=== PATIENT | male | born 1995 | race Two or more races ===

== ENCOUNTER 2022-04-19 23:42 | Inpatient (IN) | payer OTHER ==
[~2022-04-19] VITALS: Ht 190.5 cm; Wt 65.8 kg
--- NOTE | 2022-04-20 00:08 | NUR ---
Dr. Gutierrez at bedside. MSE in progress.
--- NOTE | 2022-04-20 00:48 | NUR ---
X-ray at bedside.
[2022-04-20] MEDS ORDERED: LIDOCAINE 1%-EPI 1:100,000 20 ML VIAL IJ ONE (01:00)
[2022-04-20] MEDS ORDERED: MORPHINE SULFATE 4 MG/1 ML DISP.SYRIN IV ONE (01:00)
[2022-04-20] MEDS ORDERED: MORPHINE SULFATE 4 MG/1 ML DISP.SYRIN ONE (01:12)
[2022-04-20 01:17] LABS: HEMATOCRIT 40.2 % (36.7-47.1); MEAN CORPUSCULAR HEMOGLOBIN 30.8 uug (23.8-33.4); MEAN CORPUSCULAR VOLUME 87.5 fL (73.0-96.2); PLATELET COUNT (AUTO) 221 K/uL (152-348)
[2022-04-20 01:27] LABS: CARBON DIOXIDE 26 mmol/L (21-32); CHLORIDE 102 mmol/L (98-107); CREATININE 0.7 mg/dL (0.6-1.3); GLUCOSE 104 mg/dL (74-106); POTASSIUM 3.4 mmol/L (3.5-5.1); UREA NITROGEN, BLOOD 15 mg/dL (7-18)
[2022-04-20] MEDS ORDERED: LIDOCAINE 2%-EPI 1:100,000 20 ML VIAL ONE (01:42)
--- NOTE | 2022-04-20 03:41 | NUR ---
Called [facility] to page Tereso Kessler NP.
[2022-04-20] MEDS ORDERED: HYDROCODONE/APAP 10-325 MG TABLET PO PRN (03:45)
[2022-04-20] MEDS ORDERED: HYDROCODONE/APAP 10-325 MG TABLET ONE (03:46)
--- NOTE | 2022-04-20 03:56 | NUR ---
Report given to ANN Wang.
--- NOTE | 2022-04-20 04:20 | NUR ---
Pt. admitted to TELE rm 311, under care of Dr. Kessler Belongs List completed Felipe aware of patient's arrival to unit.
[2022-04-20 04:43] VITALS: BP 132/81
[2022-04-20] MEDS ORDERED: HYDROCODONE/APAP 5-325MG TABLET PO PRN (05:45)
[2022-04-20] MEDS ORDERED: ZOLPIDEM 5 MG TABLET PO PRN (05:45)
[2022-04-20] MEDS ORDERED: MORPHINE SULFATE 2 MG/1 ML DISP.SYRIN IV PRN (05:45)
[2022-04-20] MEDS ORDERED: REMEDY ESSENTIAL ZINC PASTE 113 GM TP PRN (05:45)
[2022-04-20] MEDS ORDERED: ONDANSETRON 4 MG/2 ML VIAL IV PRN (05:45)
[2022-04-20] MEDS ORDERED: ACETAMINOPHEN 325 MG TABLET PO PRN (05:45)
[2022-04-20] MEDS ORDERED: MAGNESIUM HYDROXIDE 30 ML LIQUID UDC PO PRN (05:45)
[2022-04-20 08:00] VITALS: BP 118/66
[2022-04-20] MEDS ORDERED: PANTOPRAZOLE SODIUM 40 MG VIAL IV SCH (09:00)
--- NOTE | 2022-04-20 09:30 | NUR ---
PATIENT IS UP OUT OF BED AND WALKING IN THE HALLWAY HOLDING ONTO HIS PLEURAL VAC ON ROOM AIR WITH NO SHORTNESS OF BREATH NOT IN DISTRESS AT THIS TIME WILL CONTINUE TO OBSERVE.
--- NOTE | 2022-04-20 10:30 | NUR ---
PATIENT MEDICATED WITH MORPHINE PER HIS REQUEST FOR LEFT CHEST PAIN.CHEST TUBE IS IN PLACE AND FUNCTIONING WELL AT THIS TIME.
[2022-04-20] MEDS: MORPHINE SULFATE 2 MG/1 ML DISP.SYRIN IV PRN ×3 (10:42→23:07)
[2022-04-20 12:00] VITALS: BP 139/79
[2022-04-20] MEDS ORDERED: POTASSIUM CHLORIDE 20 MEQ TAB.PRT.SR PO ONE (14:00)
--- NOTE | 2022-04-20 14:26 | NUR ---
POTASSIUM LEVEL IS 3.4 WITH ORDER TO GIVE ORAL POTASSIUM REPLACEMENT GIVEN AT THIS TIME.
[2022-04-20 16:00] VITALS: BP 97/67
--- NOTE | 2022-04-20 18:00 | NUR ---
UP AGAIN WALKING UP AND DOWN THE HALLWAY WITH STEADY GAIT NO C/O DISCOMFORTS AT THIS TIME WILL CONTINUE TO OBSERVE.
[2022-04-20 20:30] VITALS: BP 139/78
[2022-04-21 00:18] VITALS: BP 122/79
[2022-04-21 04:14] VITALS: BP 116/51
[2022-04-21] MEDS: MORPHINE SULFATE 2 MG/1 ML DISP.SYRIN IV PRN (04:25)
--- NOTE | 2022-04-21 06:53 | NUR ---
Patient slept well, no acute distress noted. Medicated for pain with good effect. Needs assessed and attended to. Call light within easy reach.
--- NOTE | 2022-04-21 06:58 | NUR ---
Left sided chest tube intact, no leak noted.
[2022-04-21 07:12] LABS: MEAN CORPUSCULAR HEMOGLOBIN 31.1 uug (23.8-33.4); MEAN CORPUSCULAR VOLUME 87.7 fL (73.0-96.2); PLATELET COUNT (AUTO) 195 K/uL (152-348)
[2022-04-21 07:32] LABS: CARBON DIOXIDE 29 mmol/L (21-32); CHLORIDE 104 mmol/L (98-107); CREATININE 0.7 mg/dL (0.6-1.3); GLUCOSE 98 mg/dL (74-106); MAGNESIUM 1.8 mg/dL (1.8-2.4); PHOSPHOROUS 5.1 mg/dL (2.5-4.9); POTASSIUM 3.9 mmol/L (3.5-5.1); UREA NITROGEN, BLOOD 11 mg/dL (7-18)
[2022-04-21] MEDS ORDERED: PANTOPRAZOLE SODIUM 40 MG TABLET.DR PO SCH (08:00)
[2022-04-21 08:14] VITALS: BP 122/75
--- NOTE | 2022-04-21 08:56 | NUR ---
PT LEFT THE UNIT UN NOTICE. NOTIFIED SECURITY. SECURITY SAID " HE SAW A MAN WITH A CHEST TUBE GOING OUT THE FROM DOOR". NOTIFIED NURSING SCOW DERRICK OPERATOR.
--- NOTE | 2022-04-21 09:02 | NUR ---
CALLED PT CELLPHONE, HE SAID HE WAS ON THE STORE BUYING FOOD. HE WILL BE BACK IN 10MINS. SECURITY NOTIFIED. Addendum: 04/21/22 at 0918 by MILAGRO SOMMER RN NOTIFIED EDUCATION ASSOCIATE ABOUT THE INCIDENT.
--- NOTE | 2022-04-21 10:00 | NUR ---
pt came back to the unit with his father. pt went to the store to get something to eat.
--- NOTE | 2022-04-21 10:30 | NUR ---
hospitalist and director consumer spoke with pt regarding the implication of leaving the hospital. pt verbalized understanding.
[2022-04-21 11:45] VITALS: BP 122/76
[2022-04-21] MEDS ORDERED: diphenhydrAMINE 50 MG CAPSULE PO PRN (11:45)
--- NOTE | 2022-04-21 12:00 | NUR ---
incident report not filed. incident report site is down. called IT help desk hotline for troubleshooting but no luck fixing it. DON notified.
[2022-04-21 15:56] VITALS: BP 125/74
--- NOTE | 2022-04-21 19:06 | NUR ---
PT WAS DISCHARGE. PT IS GOING TO [facility] FOR HIGHER LEVEL OR CARE. EXIT CARE PROVIDED. ALL BELONGINGS ACCOUNTED FOR. PT LEFT ON AN AMBULANCE VIA GURNEY. VITALS WNL.
== END 2022-04-21 19:10 | disposition short-term general hospital (02) | DRG 143 ==
LOC: ER 23:42 → MEDSURG3 04-20 03:16 → EDBD 04-20 03:16 → TELE3 04-20 04:34
PROVIDERS: ADMIT Registered Nurse; ATTEND Registered Nurse
PROC: 0W9B30Z Drainage of Left Pleural Cavity with Drainage Device, Percutaneous Approach (ICD-10-PCS; principal; 2022-04-20)
DX: J93.83 Other pneumothorax (principal); Z20.822 Contact with and (suspected) exposure to COVID-19; Z87.891 Personal history of nicotine dependence
CPT/HCPCS: 36415; 71045; 83735; 84100; 85025; C9113; G0378; J2270; J3490; Q0163